=== PATIENT | female | born 2000 | race Caucasian/White ===

== ENCOUNTER 2024-11-14 23:41 | Emergency (ER) | payer MEDICAID ==
[~2024-11-14] VITALS: Ht 162.6 cm; Wt 122.9 kg
[2024-11-15] MEDS ORDERED: PRED20TA PO (06:50)
[2024-11-15] MEDS ORDERED: BENA25CA4 PO (06:50)
[2024-11-15] MEDS ORDERED: HYDR1CRE30 TOP (06:51)
[2024-11-15] MEDS: predniSONE 20 MG TAB PO ONE (07:03)
[2024-11-15 07:14] VITALS: BP 148/73; TEMP 97.4; O2SAT 98
== END 2024-11-15 07:24 | disposition home or self-care (01) ==
LOC: M ED 23:41 → EDBD 23:41 → M ED 11-15 07:24
DX: L24.0 Irritant contact dermatitis due to detergents (principal); F17.200 Nicotine dependence, unspecified, uncomplicated; Z79.52 Long term (current) use of systemic steroids; Z79.899 Other long term (current) drug therapy; Z88.0 Allergy status to penicillin; Z88.1 Allergy status to other antibiotic agents
CPT/HCPCS: 99284; J7512